=== PATIENT | female | born 1970 | race Caucasian/White ===

== ENCOUNTER 2017-01-28 10:54 | Emergency (ER) | payer OTHER ==
[~2017-01-28] VITALS: Ht 162.6 cm; Wt 72.1 kg
[~2017-01-28 10:54] MED LIST: CIPR500T4; DEPA500T2; MAXALT; PROP60TA; PYRI200T; VICO5TAB
[2017-01-28 10:55] VITALS: BP 110/70
[2017-01-28] MEDS ORDERED: MULTCAP11 PO (11:10)
[2017-01-28] MEDS ORDERED: NS 1,000 ML IV ONE (12:45)
[2017-01-28] MEDS ORDERED: ONDANSETRON 4MG/2ML VIAL (J2405) IV ONE ×2 (12:45→15:30)
[2017-01-28] MEDS ORDERED: KETOROLAC 30 MG/ML VIAL (J1885) IV ONE (12:45)
[2017-01-28 12:46] LABS: BASO % 0.3 % (0.0-1.0); EOS % 0.3 % (0.0-3.0); LARGE UNSTAINED CELL # 0.1 K/mm3 (0.0-0.4); LARGE UNSTAINED CELL % 1.1 % (0.0-4.0); LYMPH # 1.8 K/mm3 (1.5-4.5); LYMPH % 21.7 % (24.0-44.0); MEAN CORPUSCULAR HEMOGLOBIN 24.1 pg (27.0-33.0); MEAN CORPUSCULAR HGB CONC 31.4 g/dl (32.0-36.5); MEAN CORPUSCULAR VOLUME 76.7 fl (80.0-96.0); MONO # 0.4 K/mm3 (0.0-0.8); MONO % 5.5 % (0.0-5.0); NEUTROPHILS # 5.6 K/mm3 (1.8-7.7); NEUTROPHILS % 71.1 % (36.0-66.0); PLATELET COUNT, AUTOMATED 236 k/mm3 (150-450); RED CELL DISTRIBUTION WIDTH 14.4 % (11.5-14.5); WHITE BLOOD COUNT 7.8 K/mm3 (4.0-10.0)
[2017-01-28 12:50] LABS: CONTROL LINE UCG INT CTR LINE PRESENT
[2017-01-28 13:17] LABS: ALBUMIN 4.3 GM/DL (3.2-5.2); ALBUMIN/GLOBULIN RATIO 1.19 (1.00-1.93); ALKALINE PHOSPHATASE 78 U/L (45-117); ALT/SGPT 18 U/L (12-78); ANION GAP 7 MEQ/L (8-16); AST/SGOT 12 U/L (15-37); BILIRUBIN,DIRECT 0.1 MG/DL (0.0-0.2); BILIRUBIN,TOTAL 0.4 MG/DL (0.2-1.0); BLOOD UREA NITROGEN 8 MG/DL (7-18); CALCIUM LEVEL 9.2 MG/DL (8.5-10.1); CARBON DIOXIDE LEVEL 27 MEQ/L (21-32); CHLORIDE LEVEL 107 MEQ/L (98-107); CREATININE FOR GFR 0.83 MG/DL (0.55-1.02); GLOMERULAR FILTRATION RATE > 60.0 (>58); GLUCOSE, FASTING 98 MG/DL (70-105); POTASSIUM SERUM 3.7 MEQ/L (3.5-5.1); SODIUM LEVEL 141 MEQ/L (136-145); TOTAL PROTEIN 7.9 GM/DL (6.4-8.2)
--- NOTE | 2017-01-28 14:04 | REP ---
CT abdomen pelvis without IV or bowel contrast: Comparison is the most recent prior study of 08/14/2009. The visualized lung hill are unremarkable. The hepatic parenchyma, gallbladder, pancreas and spleen are unremarkable. There has been interim bariatric surgery. The patient has also had an interim appendectomy. The adrenals are unremarkable. There is no hydronephrosis. There are no renal calculi. However, there is a tiny 3 mm calculus in the pelvis on the right on image 89, not present previously. I cannot determine with certainty whether this is an ureteral calculus or not. Similarly there is a 5 mm calculus in the pelvis on the left on image 85, not present previously. Unable to determine if this is an ureteral calculus on the current study. There are no bladder calculi. As stated there is no hydronephrosis. Pelvis: There is a trace of ascites in the cul-de-sac. There is no adenopathy. There is a 5.1 cm mass anterior to the uterus on the right, not present previously, possibly a large exophytic fibroid. Impression: There are calcifications in the pelvis bilaterally, not present previously, questionable ureteral calculi. There is no hydronephrosis. I would recommend a CT urogram to identify locations of the ureters in relation to these calcifications. There is a soft tissue mass anterior to the uterine fundus on the right measuring 5.1 cm, not present previously, possibly an exophytic uterine fibroid. There is a trace of ascites in the pelvis. There has been interim bariatric surgery had an interim appendectomy. Signed by Michael Santana MD 01/28/2017 01:56 P
[2017-01-28] MEDS ORDERED: ISOVUE-370 76% 100ML VIAL (Q9967) As Ordered ONE (14:26)
[2017-01-28] MEDS ORDERED: MORPHINE 2 MG/ML 1ML SYRINGE IV ONE (15:30)
--- NOTE | 2017-01-28 16:04 | REP ---
CT ABDOMEN AND PELVIS WITH IV CONTRAST: TECHNIQUE: Axial contrast enhanced images from the lung bases to the pubic symphysis using 100 mL Isovue 370 intravenous contrast material with multiplanar reformations. Visualized lung bases are clear. The liver, spleen, adrenals, pancreas, and kidneys are normal in appearance. There is no hydroureteronephrosis or evidence of ureteral obstruction. The patient has had prior gastric bypass surgery. There is no abdominal aortic aneurysm. There is no adenopathy. There is no free air. There is no bowel wall thickening. There is mild free fluid in the pelvis. In the right anterior pelvis, there is a 5.6 cm round mass which most likely represents a complex ovarian cyst. A second small cystic structure is seen at its superolateral aspect measuring 2.1 cm in diameter. No other pelvic mass is seen. Urinary bladder is unremarkable. IMPRESSION: No hydronephrosis or evidence of ureteral obstruction. Right anterior pelvic mass measures 5.6 cm in maximum diameter, probably representing a complex right ovarian cyst. There is mild free fluid. Recommend pelvic ultrasound to further evaluate. Signed by Michael Melo MD 01/28/2017 05:41 P
--- NOTE | 2017-01-28 16:39 | REP ---
Pelvic ultrasound including transabdominal, endovaginal and Doppler ultrasound assessment: The uterus is anteverted and upper normal size measuring 9.4 x 5.6 x 6.3 cm. The endometrium is thickened measuring 18.9 mm. No myometrial fibroids are identified. There is a 6.2 cm solid mass in the right adnexa. No normal right ovarian tissue is identified. Therefore, this mass could represent an ovarian neoplasm. The left ovary is normal size measuring 2.5 x 1.9 x 1.6 cm. There is vascular flow in the left ovary with the Doppler resistive index of the intraparenchymal arteries measuring 0.48. Impression: There is a 6.2 cm solid mass in the right adnexa. There is no normal right ovarian tissue identified, therefore, this mass could represent a large right ovarian mass replacing the entire right ovary. 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 The endometrium is thickened. No uterine fibroids are identified. The left ovary is unremarkable. Signed by Michael Santana MD 01/28/2017 04:30 P
[2017-01-28] MEDS ORDERED: OXYC1TAB23 PO (17:10)
--- NOTE | 2017-02-02 21:22 | ED PDOC ---
Post-Departure Follow-Up dr morataya and dr kapadia faxed formal report of ct abd/p for fu Genesis Condon MD Feb 02, 2017 21:22
== END 2017-01-28 17:19 | disposition home or self-care (01) ==
LOC: M ED 12:37
DX: R19.09 Other intra-abdominal and pelvic swelling, mass and lump (principal); F33.9 Major depressive disorder, recurrent, unspecified; Z88.8 Allergy status to other drugs, medicaments and biological substances; Z91.040 Latex allergy status
CPT/HCPCS: 74176; 74177; 76830; 76856; 80048; 80076; 81001; 83690; 84703; 85025; 93976; 96374; 96375; 96376; 99283; J1885; J2405; Q9967

== ENCOUNTER → 2017-02-08 | Outpatient (CLI) | payer OTHER ==
[~2017-02-08] MED LIST changes: +MULTCAP11 PO; +OXYC1TAB23 PO
== END ==
LOC: M LAB 18:30
DX: N83.209 Unspecified ovarian cyst, unspecified side (principal)

== ENCOUNTER → 2017-06-14 | Outpatient (REF) | payer OTHER | LOC: M SFHCCLAY 16:08 | PROVIDERS: ATTEND Nurse Practitioner Family | DX: N76.1 Subacute and chronic vaginitis (principal) ==

== ENCOUNTER → 2018-12-20 | Outpatient (REF) | payer OTHER ==
[2018-12-20 17:22] LABS: HEMATOCRIT 33.2 % (36.0-47.0); HEMOGLOBIN 9.6 g/dl (12.0-15.5); MEAN CORPUSCULAR HEMOGLOBIN 20.7 pg (27.0-33.0); MEAN CORPUSCULAR HGB CONC 28.9 g/dl (32.0-36.5); MEAN CORPUSCULAR VOLUME 71.6 fl (80.0-96.0); PLATELET COUNT, AUTOMATED 266 10^3/uL (150-450); RED BLOOD COUNT 4.64 10^6/uL (4.00-5.40); WHITE BLOOD COUNT 3.4 10^3/uL (4.0-10.0)
[2018-12-20 17:27] LABS: APPEARANCE, URINE CLEAR (CLEAR); BACTERIA, URINE AUTO NEGATIVE (NEGATIVE); BILIRUBIN, URINE AUTO NEGATIVE (NEGATIVE); BLOOD, URINE BLOOD NEGATIVE (NEGATIVE); COLOR, URINE STRAW (YELLOW); GLUCOSE, URINE (UA) AUTO NEGATIVE (NEGATIVE); KETONE, URINE AUTO NEGATIVE (NEGATIVE); LEUKOCYTE ESTERASE, URINE AUTO NEGATIVE (NEGATIVE); NITRITE, URINE AUTO NEGATIVE (NEGATIVE); PROTEIN, URINE AUTO NEGATIVE (NEGATIVE); RBC, URINE AUTO 0 /HPF (0-3); SPECIFIC GRAVITY URINE AUTO 1.008 (1.002-1.035); SQUAMOUS EPITHELIAL CELL UR AU 0 /HPF (0-6); UROBILINOGEN, URINE AUTO 0.2 mg/dL (0.0-2.0); WBC, URINE AUTO 0 /HPF (0-3)
[2018-12-20 17:37] LABS: ALT/SGPT 23 U/L (12-78); BILIRUBIN,TOTAL 0.4 MG/DL (0.2-1.0); BLOOD UREA NITROGEN 12 MG/DL (7-18); CALCIUM LEVEL 8.7 MG/DL (8.5-10.1); CARBON DIOXIDE LEVEL 30 MEQ/L (21-32); CHLORIDE LEVEL 108 MEQ/L (98-107); CHOLESTEROL LEVEL 216 MG/DL (<200); CHOLESTEROL RISK RATIO 2.373 (<5); CREATININE FOR GFR 0.77 MG/DL (0.55-1.30); GLOMERULAR FILTRATION RATE > 60.0 (>51); GLUCOSE, FASTING 83 MG/DL (70-100); HDL CHOLESTEROL 91 MG/DL (>40); LDL CHOLESTEROL 108 MG/DL (<100); NON-HDL-C 125 MG/DL; POTASSIUM SERUM 4.2 MEQ/L (3.5-5.1); SODIUM LEVEL 142 MEQ/L (136-145); TOTAL PROTEIN 7.3 GM/DL (6.4-8.2); TRIGLYCERIDES LEVEL 87 MG/DL (<150)
[2018-12-23 00:09] LABS: ANA (HEP2) Negative (.); CYCLIC CITRULLINATED PEPTIDE 7 units (0-19)
== END ==
LOC: M SFHCCLAY 11:57
PROVIDERS: ATTEND Family Medicine
DX: Z00.00 Encounter for general adult medical examination without abnormal findings (principal); N94.10 Unspecified dyspareunia; Z15.09 Genetic susceptibility to other malignant neoplasm; M25.532 Pain in left wrist; M25.531 Pain in right wrist

== ENCOUNTER → 2019-01-24 | Outpatient (CLI) | payer OTHER ==
[~2019-01-24] MED LIST changes: +BIOT1CAP2 PO; +FISH1000 PO; +IRON27TA2 PO; +PROHANCE 279.3MG/ML 15ML VIAL (A9576) As Ordered ONE; +VITA100067 PO; +VITA500T3 PO
--- NOTE | 2019-01-24 12:02 | REP ---
MRI ABDOMEN WITH AND WITHOUT CONTRAST: TECHNIQUE: Multiple sequences obtained in the coronal and axial planes prior to and following the intravenous administration of 13 mL ProHance. Comparison made with prior CT 01/28/2017 The liver demonstrates no mass. Gallbladder is grossly unremarkable. There is no biliary dilatation. The spleen, adrenals, pancreas, and kidneys are normal in appearance with no evidence of a mass. No adenopathy is seen in the abdomen. No free fluid is seen. IMPRESSION: No evidence of mass or adenopathy. Electronically Signed by Michael Melo MD 01/24/2019 04:34 P
== END ==
LOC: M RAD 08:50
PROVIDERS: ATTEND Internal Medicine Gastroenterology
DX: Z15.09 Genetic susceptibility to other malignant neoplasm (principal); Z80.0 Family history of malignant neoplasm of digestive organs
CPT/HCPCS: 74183; A9576

== ENCOUNTER 2019-01-29 11:16 | Day surgery (SDC) | payer OTHER ==
[~2019-01-29] VITALS: Ht 162.6 cm; Wt 67.1 kg
[~2019-01-29 11:16] MED LIST changes: +NS 1,000 ML IV ONE; -PROHANCE 279.3MG/ML 15ML VIAL (A9576) As Ordered ONE
[2019-01-29] MEDS ORDERED: PROPOFOL 500 MG/50 ML VIAL As Ordered ONE (13:16)
[2019-01-29] MEDS ORDERED: fentaNYL 100 MCG/2 ML INJECTION (J3010) As Ordered ONE (13:55)
--- NOTE | 2019-01-29 14:08 | ROOR ---
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 Procedure: Pre-Anesthesia Assessment: - The heart rate, respiratory rate, oxygen saturations, blood pressure, adequacy of pulmonary ventilation, and response to care were monitored throughout the procedure. The Endoscope was introduced through the mouth, and advanced to the jejunum. The upper GI endoscopy was accomplished without difficulty. The patient tolerated the procedure well. Findings: The examined esophagus was normal. Evidence of a Latonia-en-Y gastrojejunostomy was found. The gastrojejunal anastomosis was characterized by healthy appearing mucosa. The exam of the stomach was otherwise normal. Several biopsies were obtained with cold forceps for histology randomly in the entire examined stomach. The examined jejunum was normal. Impression: - Normal esophagus. - Latonia-en-Y gastrojejunostomy with gastrojejunal anastomosis characterized by healthy appearing mucosa. - Normal examined jejunum. - Several biopsies were obtained in the entire examined stomach remnant. Recommendation: - Await pathology results. - Telephone endoscopist for pathology results in 2 weeks. Jae Gr MD Jae GR MD 01/29/2019 2:07:37 PM Electronically signed by Jae RG MD Number of Addenda: 0 Note Initiated On: 01/29/2019 1:51 PM Estimated Blood Loss: Estimated blood loss: none.
--- NOTE | 2019-01-29 14:31 | ROOR ---
Patient Name: Xochitl Ardon Procedure Date: 01/29/2019 1:52 PM Date of : 1970 Age: 48 Room: [facility] Gender: Female Note Status: Finalized Procedure: Colonoscopy Indications: Colon cancer screening in patient at increased risk: Family history of hereditary nonpolyposis colorectal cancer Providers: Jae GR MD Referring MD: Raymon Field MD Requesting Provider: Medicines: Monitored Anesthesia Care Complications: No immediate complications. Procedure: Pre-Anesthesia Assessment: - The heart rate, respiratory rate, oxygen saturations, blood pressure, adequacy of pulmonary ventilation, and response to care were monitored throughout the procedure. The Colonoscope was introduced through the anus and advanced to the terminal ileum, with identification of the appendiceal orifice and IC valve. The colonoscopy was performed without difficulty. The patient tolerated the procedure well. The quality of the bowel preparation was good. Findings: The perianal and digital rectal examinations were normal. A 4 mm polyp was found in the splenic flexure. The polyp was sessile. The polyp was removed with a cold snare. Resection and retrieval were complete. The exam was otherwise without abnormality on direct and retroflexion views. Impression: - One 4 mm polyp at the splenic flexure, removed with a cold snare. Resected and retrieved. - The examination was otherwise normal on direct and retroflexion views. Recommendation: - Repeat colonoscopy in 1 year for screening purposes. Jae Gr MD Jae GR MD 01/29/2019 2:30:58 PM Electronically signed by Jae GR MD Number of Addenda: 0 Note Initiated On: 01/29/2019 1:52 PM Estimated Blood Loss: Estimated blood loss: none.
[2019-01-29] MEDS ORDERED: LIDOCAINE 2% INJ 100 MG/5 ML SDV (FOR ANES.) As Ordered ONE (14:40)
[2019-01-29 15:05] VITALS: BP 114/62
== END 2019-01-29 15:10 | disposition home or self-care (01) ==
LOC: M OPP 11:16
PROVIDERS: ATTEND Internal Medicine Gastroenterology
DX: D12.3 Benign neoplasm of transverse colon (principal); R10.13 Epigastric pain; Z12.11 Encounter for screening for malignant neoplasm of colon; Z80.0 Family history of malignant neoplasm of digestive organs; Z15.09 Genetic susceptibility to other malignant neoplasm; Z98.84 Bariatric surgery status
CPT/HCPCS: 43239; 45385; 88305; J3010

== ENCOUNTER → 2019-03-07 | Outpatient (CLI) | payer OTHER ==
[~2019-03-07] MED LIST changes: -NS 1,000 ML IV ONE
--- NOTE | 2019-03-07 10:35 | REPMRS ---
Patient History The patient states she has not had a clinical breast exam in over a year. Family history of ovarian cancer at age 25 in mother, breast cancer at age 38 in mother, unknown cancer at age 50 in mother, breast cancer at age 60 in maternal aunt, breast cancer at age 68 in maternal aunt, colorectal cancer at age 70 in father, breast cancer at age 35 in maternal grandmother, unknown cancer at age 50 in maternal grandfather, ovarian cancer at age 18 in sister, breast cancer in maternal aunt. Took hormonal contraceptives for 10 years. Patient states she had a double lumpectomy in right breast with benign results. Digital Mammo Screening Bilat: March 07, 2019 - Exam #: [id number] Bilateral CC and MLO view(s) were taken. Technologist: Candie Kennedyologist Prior study comparison: December 19, 2013, bilateral bilat screen digital mammo, performed at [facility] ([facility]). June 11, 2009, bilateral screening mammogram, performed at [facility] ([facility]). FINDINGS: The breast tissue is heterogeneously dense. This may lower the sensitivity of mammography. There is a moderate amount of heterogeneously dense fibroglandular tissue which is fairly symmetric. There is no interval development of dominant mass, architectural distortion, or clustered microcalcification typical of malignancy. There has been no change in the appearance of the mammogram from the prior studies. 3-D tomosynthesis shows no additional findings. Assessment: BI-RADS/ACR category 1 mammogram. Negative Mammogram. Recommendation Breast MRI of both breasts in 6 months. Routine screening mammogram of both breasts in 1 year (for women over age 40). This patient's Lifetime Breast Cancer RIsk is estimated at 26.8 %. Annual screening Breast MRI scanniing is recommended for patient's whose lifetime risk assessment is over 20%. This mammogram was interpreted with the aid of an FDA-approved computer-aided dectection system. Electronically Signed By: Milo Molina MD 03/07/19 [id number]
== END ==
LOC: M RAD 07:22
PROVIDERS: ATTEND Family Medicine
DX: Z12.31 Encounter for screening mammogram for malignant neoplasm of breast (principal); Z80.3 Family history of malignant neoplasm of breast; Z80.41 Family history of malignant neoplasm of ovary; Z80.9 Family history of malignant neoplasm, unspecified; Z80.0 Family history of malignant neoplasm of digestive organs; Z92.0 Personal history of contraception

== ENCOUNTER → 2019-03-30 | Outpatient (CLI) | payer OTHER ==
[2019-03-30 11:04] LABS: BASO % 1.1 % (0.0-1.0); EOS # 0.1 10^3/uL (0.0-0.50); EOS % 3.4 % (0.0-3.0); HEMATOCRIT 30.9 % (36.0-47.0); LYMPH # 1.7 10^3/uL (1.5-4.5); LYMPH % 46.9 % (24.0-44.0); MEAN CORPUSCULAR HEMOGLOBIN 20.6 pg (27.0-33.0); MEAN CORPUSCULAR HGB CONC 29.1 g/dl (32.0-36.5); MEAN CORPUSCULAR VOLUME 70.9 fl (80.0-96.0); MONO # 0.3 10^3/uL (0.0-0.8); MONO % 9.3 % (0.0-5.0); NEUTROPHILS # 1.4 10^3/uL (1.8-7.7); PLATELET COUNT, AUTOMATED 254 10^3/uL (150-450); RED BLOOD COUNT 4.36 10^6/uL (4.00-5.40); WHITE BLOOD COUNT 3.6 10^3/uL (4.0-10.0)
[2019-03-30 11:27] LABS: ALBUMIN 3.6 GM/DL (3.2-5.2); ALT/SGPT 20 U/L (12-78); BILIRUBIN,TOTAL 0.2 MG/DL (0.2-1.0); BLOOD UREA NITROGEN 17 MG/DL (7-18); CALCIUM LEVEL 8.6 MG/DL (8.5-10.1); CARBON DIOXIDE LEVEL 30 MEQ/L (21-32); CHLORIDE LEVEL 110 MEQ/L (98-107); CREATININE FOR GFR 0.77 MG/DL (0.55-1.30); FERRITIN < 3 NG/ML (8-252); GLOMERULAR FILTRATION RATE > 60.0 (>51); GLUCOSE, FASTING 92 MG/DL (70-100); IRON (FE) 20 UG/DL (50-170); MAGNESIUM LEVEL 2.3 MG/DL (1.8-2.4); PERCENT SATURATION 4.4 % (13.2-45.0); POTASSIUM SERUM 4.5 MEQ/L (3.5-5.1); RHEUMATOID FACTOR QUANT < 10.0 IU/ML (<15.0); SODIUM LEVEL 144 MEQ/L (136-145); TOTAL IRON BINDING CAPACITY 450 UG/DL (250-450); TOTAL PROTEIN 6.9 GM/DL (6.4-8.2)
[2019-03-30 11:34] LABS: FOLATE 8.9 NG/ML (>5.4); TOTAL 25(OH) VITAMIN D 22.8 NG/ML (30.0-100.0); VITAMIN B12 LEVEL 260 PG/ML (247-911)
[2019-03-30 11:41] LABS: ERYTHROCYTE SEDIMENTATION RATE 17 mm/hr (0-30)
[2019-04-03 00:06] LABS: ANA (HEP2) Positive (.); Lyme Disease IgG/IgM Antibodie <0.91 ISR (0.00-0.90); Lyme Disease IgM Ab Quantitati <0.80 index (0.00-0.79)
== END ==
LOC: M LAB 08:55
PROVIDERS: ATTEND Nurse Practitioner Family
DX: Z98.84 Bariatric surgery status (principal); M25.531 Pain in right wrist

== ENCOUNTER → 2019-05-08 | Outpatient (REF) | payer OTHER ==
[~2019-05-08] MED LIST changes: +CIPR-249 PO; +CYAN500T8 PO; +PYRI1TAB5 PO; -VITA500T3 PO
[2019-05-08 13:03] LABS: HEMATOCRIT 32.5 % (36.0-47.0); HEMOGLOBIN 9.4 g/dl (12.0-15.5); MEAN CORPUSCULAR HEMOGLOBIN 21.1 pg (27.0-33.0); MEAN CORPUSCULAR HGB CONC 28.9 g/dl (32.0-36.5); PLATELET COUNT, AUTOMATED 248 10^3/uL (150-450); RED BLOOD COUNT 4.45 10^6/uL (4.00-5.40); WHITE BLOOD COUNT 3.8 10^3/uL (4.0-10.0)
[2019-05-08 13:09] LABS: PERCENT SATURATION 3.3 % (13.2-45.0)
[2019-05-08 13:15] LABS: PTH INTACT 48.1 PG/ML (18.5-88.0)
== END ==
LOC: M SFHCCLAY 07:50
PROVIDERS: ATTEND Family Medicine
DX: Z86.19 Personal history of other infectious and parasitic diseases (principal); D50.9 Iron deficiency anemia, unspecified; Z98.84 Bariatric surgery status

== ENCOUNTER 2019-05-26 02:27 | Emergency (ER) | payer OTHER ==
[~2019-05-26] VITALS: Ht 162.6 cm; Wt 68.8 kg
[~2019-05-26 02:27] MED LIST changes: -CIPR-249 PO; -PYRI1TAB5 PO
[2019-05-26 04:06] LABS: BASO % 0.6 % (0.0-1.0); EOS # 0.1 10^3/uL (0.0-0.50); EOS % 1.9 % (0.0-3.0); HEMATOCRIT 28.8 % (36.0-47.0); HEMOGLOBIN 8.5 g/dl (12.0-15.5); LYMPH # 1.7 10^3/uL (1.5-4.5); LYMPH % 27.1 % (24.0-44.0); MEAN CORPUSCULAR HEMOGLOBIN 20.8 pg (27.0-33.0); MEAN CORPUSCULAR HGB CONC 29.5 g/dl (32.0-36.5); MEAN CORPUSCULAR VOLUME 70.4 fl (80.0-96.0); MONO # 0.5 10^3/uL (0.0-0.8); MONO % 8.7 % (0.0-5.0); NEUTROPHILS # 3.8 10^3/uL (1.8-7.7); NEUTROPHILS % 61.5 % (36.0-66.0); PLATELET COUNT, AUTOMATED 233 10^3/uL (150-450); RED BLOOD COUNT 4.09 10^6/uL (4.00-5.40); WHITE BLOOD COUNT 6.2 10^3/uL (4.0-10.0)
[2019-05-26 04:47] LABS: ALBUMIN 3.7 GM/DL (3.2-5.2); ALT/SGPT 19 U/L (12-78); AMYLASE 57 U/L (25-115); BILIRUBIN,DIRECT < 0.1 MG/DL (0.0-0.2); BILIRUBIN,TOTAL 0.2 MG/DL (0.2-1.0); LIPASE 133 U/L (73-393); TOTAL PROTEIN 6.9 GM/DL (6.4-8.2)
[2019-05-26 05:00] VITALS: BP 124/72
[2019-05-26] MEDS ORDERED: CIPR-249 PO (05:13)
[2019-05-26] MEDS ORDERED: PYRI1TAB5 PO (05:13)
[2019-05-26] MEDS ORDERED: PHENAZOPYRIDINE 100 MG TAB PO ONE (05:15)
[2019-05-26] MEDS ORDERED: CIPROFLOXACIN 500 MG TAB PO ONE (05:15)
== END 2019-05-26 05:27 | disposition home or self-care (01) ==
LOC: M ED 02:27
DX: N10 Acute pyelonephritis (principal); Z15.09 Genetic susceptibility to other malignant neoplasm; Z79.899 Other long term (current) drug therapy; Z88.8 Allergy status to other drugs, medicaments and biological substances; Z91.040 Latex allergy status

== ENCOUNTER → 2019-05-31 | Outpatient (REF) | payer OTHER ==
[~2019-05-31] MED LIST changes: +CIPR-249 PO; +PYRI1TAB5 PO
== END ==
LOC: M SFHCCLAY 16:06
PROVIDERS: ATTEND Family Medicine
DX: Z98.84 Bariatric surgery status (principal); D50.9 Iron deficiency anemia, unspecified

== ENCOUNTER 2019-06-15 08:17 | Outpatient (CLI) | payer OTHER ==
[2019-06-15] VITALS (8 sets, daily range): BP systolic 101–137; BP diastolic 49–66
[~2019-06-15] VITALS: Ht 162.6 cm; Wt 67.7 kg
[2019-06-15] MEDS ORDERED: IRON SUCROSE 25 MG in NS 50 ML IV ONE (09:30)
[2019-06-15] MEDS ORDERED: IRON SUCROSE 475 MG in NS 250 ML IV ONE (10:30)
== END 2019-06-15 15:05 | disposition home or self-care (01) ==
LOC: M INFU 08:17
PROVIDERS: ATTEND Family Medicine
DX: D50.9 Iron deficiency anemia, unspecified (principal); Z88.8 Allergy status to other drugs, medicaments and biological substances; Z91.040 Latex allergy status
CPT/HCPCS: 96365; 96366; J1756

== ENCOUNTER → 2019-08-02 | Outpatient (CLI) | payer OTHER ==
[2019-08-02 17:13] LABS: HEMOGLOBIN 11.1 g/dl (12.0-15.5); MEAN CORPUSCULAR HEMOGLOBIN 23.2 pg (27.0-33.0); MEAN CORPUSCULAR VOLUME 77.2 fl (80.0-96.0); PLATELET COUNT, AUTOMATED 234 10^3/uL (150-450); RED BLOOD COUNT 4.79 10^6/uL (4.00-5.40); WHITE BLOOD COUNT 5.2 10^3/uL (4.0-10.0)
[2019-08-02 17:16] LABS: CREATININE,RANDOM URINE 49.8 MG/DL; TOTAL PROTEIN,RANDOM URINE 7.5 MG/DL (0.0-12.0)
[2019-08-02 17:18] LABS: PERCENT SATURATION 5.7 % (13.2-45.0)
[2019-08-08 14:07] LABS: ANTI DS-DNA AB <1:10 titer (.); RNP ANTIBODY 0.2 AI (0.0-0.9); SMITHS ANTIBODY < 0.2 AI (0.0-0.9)
== END ==
LOC: M LAB 15:12
PROVIDERS: ATTEND Family Medicine
DX: D50.9 Iron deficiency anemia, unspecified (principal); R76.8 Other specified abnormal immunological findings in serum; Z98.84 Bariatric surgery status

== ENCOUNTER → 2019-08-02 | Outpatient (CLI) | payer OTHER ==
--- NOTE | 2019-08-02 16:57 | REP ---
Bilateral hand series: Eight views. History: Pain. Findings: Four views of each hand are obtained. Overall mineralization pattern is normal. On the left, there are mild osteoarthritic spur changes at the DIP joints of the index, long, ring, and small finger. Mild IP joint spurring is seen at the thumb. No erosive changes seen. On the right, there are similar changes with IP joint thumb spurring and mild osteoarthritic spurring at the DIP joints of the index, long ring and small fingers. There is a small fragmented spur with overlying swelling at the DIP joint of the index finger. Impression: Mild IP joint osteoarthritic changes. Electronically Signed by Lane Molina MD 08/03/2019 08:34 A
== END ==
LOC: M LAB 15:06
PROVIDERS: ATTEND Internal Medicine Rheumatology
DX: M19.041 Primary osteoarthritis, right hand (principal); M19.042 Primary osteoarthritis, left hand; R76.8 Other specified abnormal immunological findings in serum; M79.643 Pain in unspecified hand

== ENCOUNTER → 2019-08-30 | Outpatient (REF) | payer OTHER ==
[2019-08-30 11:54] LABS: HEMATOCRIT 38.2 % (36.0-47.0); HEMOGLOBIN 11.4 g/dl (12.0-15.5); MEAN CORPUSCULAR HEMOGLOBIN 23.8 pg (27.0-33.0); MEAN CORPUSCULAR HGB CONC 29.8 g/dl (32.0-36.5); MEAN CORPUSCULAR VOLUME 79.6 fl (80.0-96.0); PLATELET COUNT, AUTOMATED 240 10^3/uL (150-450); WHITE BLOOD COUNT 4.4 10^3/uL (4.0-10.0)
[2019-08-30 12:39] LABS: PERCENT SATURATION 12.9 % (13.2-45.0); THYROID STIMULATING HORMONE 2.04 uIU/ML (0.358-3.740)
== END ==
LOC: M SFHCCLAY 08:54
PROVIDERS: ATTEND Family Medicine
DX: D50.9 Iron deficiency anemia, unspecified (principal); F32.9 Major depressive disorder, single episode, unspecified

== ENCOUNTER 2019-11-24 14:56 | Emergency (ER) | payer OTHER ==
[~2019-11-24] VITALS: Ht 162.6 cm; Wt 67.5 kg
[2019-11-24] MEDS ORDERED: FLUO20CA19 PO (15:08)
[2019-11-24] MEDS ORDERED: ACET-908 PO (15:08)
[2019-11-24 15:59] LABS: INFLUENZA A AMPLIFICATION POSITIVE (NEGATIVE); INFLUENZA B AMPLIFICATION NEGATIVE (NEGATIVE)
[2019-11-24] MEDS ORDERED: OSEL75CA PO (16:21)
[2019-11-24] MEDS ORDERED: IBUPROFEN 600 MG TAB PO ONE (16:30)
[2019-11-24 16:35] VITALS: BP 121/73
== END 2019-11-24 16:42 | disposition home or self-care (01) ==
LOC: M ED 14:56
DX: J09.X2 Influenza due to identified novel influenza A virus with other respiratory manifestations (principal); F32.9 Major depressive disorder, single episode, unspecified; J30.2 Other seasonal allergic rhinitis; Z98.84 Bariatric surgery status; Z90.89 Acquired absence of other organs; Z98.51 Tubal ligation status; Z90.710 Acquired absence of both cervix and uterus; Z88.1 Allergy status to other antibiotic agents; Z88.8 Allergy status to other drugs, medicaments and biological substances; Z91.040 Latex allergy status

== ENCOUNTER → 2019-12-30 | Outpatient (CLI) | payer OTHER ==
[~2019-12-30] MED LIST changes: +ACET-908 PO; +FLUO20CA22 PO; +OSEL75CA PO
[2019-12-30 17:56] LABS: HEMATOCRIT 36.5 % (36.0-47.0); HEMOGLOBIN 11.3 g/dl (12.0-15.5); MEAN CORPUSCULAR HEMOGLOBIN 25.5 pg (27.0-33.0); MEAN CORPUSCULAR VOLUME 82.2 fl (80.0-96.0); PLATELET COUNT, AUTOMATED 215 10^3/uL (150-450); RED BLOOD COUNT 4.44 10^6/uL (4.00-5.40); WHITE BLOOD COUNT 3.7 10^3/uL (4.0-10.0)
[2019-12-30 18:01] LABS: PERCENT SATURATION 8.1 % (13.2-45.0)
== END ==
LOC: M WUC 13:06
PROVIDERS: ATTEND Family Medicine
DX: D50.9 Iron deficiency anemia, unspecified (principal)

== ENCOUNTER → 2020-03-27 | Outpatient (REF) | payer OTHER | LOC: M SFHCCLAY 15:59 | PROVIDERS: ATTEND Family Medicine | DX: D50.9 Iron deficiency anemia, unspecified (principal) ==

== ENCOUNTER → 2020-05-14 | Outpatient (CLI) | payer SELFPAY ==
[~2020-05-14] MED LIST changes: +D31000TA2 PO; +MULTTAB26 PO
== END ==
LOC: M LABSMTC 13:07
PROVIDERS: ATTEND Pediatrics
DX: Z20.828 Contact with and (suspected) exposure to other viral communicable diseases (principal); Z11.59 Encounter for screening for other viral diseases

== ENCOUNTER → 2020-06-15 | Outpatient (CLI) | payer OTHER, SELFPAY | LOC: M LABSMTC 10:33 | PROVIDERS: ATTEND Anesthesiology | DX: Z01.812 Encounter for preprocedural laboratory examination (principal); Z11.59 Encounter for screening for other viral diseases | CPT/HCPCS: C9803; U0003 ==

== ENCOUNTER 2020-06-20 10:40 | Day surgery (SDC) | payer OTHER ==
[~2020-06-20] VITALS: Ht 162.6 cm; Wt 69.3 kg
[~2020-06-20 10:40] MED LIST changes: +NS 1,000 ML IV ONE
[2020-06-20] MEDS ORDERED: propofoL 200 MG/20 ML VIAL As Ordered ONE ×2 (12:22→12:39)
[2020-06-20] MEDS ORDERED: LIDOCAINE 2% 100MG/5ML SDV (FOR ANES.) As Ordered ONE (12:22)
[2020-06-20] MEDS ORDERED: fentaNYL 100 MCG/2 ML INJECTION (J3010) As Ordered ONE (12:22)
[2020-06-20] MEDS ORDERED: ONDANSETRON 4MG/2ML VIAL As Ordered ONE (13:13)
[2020-06-20 13:20] VITALS: BP 122/55
--- NOTE | 2020-08-14 16:25 | ROOR ---
THIS EXAM WAS SENT IN ERROR
--- NOTE | 2020-08-14 16:25 | ROOR ---
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 Procedure: Pre-Anesthesia Assessment: - The heart rate, respiratory rate, oxygen saturations, blood pressure, adequacy of pulmonary ventilation, and response to care were monitored throughout the procedure. The Endoscope was introduced through the mouth, and advanced to the jejunum. The upper GI endoscopy was accomplished without difficulty. The patient tolerated the procedure well. Findings: The examined esophagus was normal. Evidence of a Latonia-en-Y gastrojejunostomy was found. The gastrojejunal anastomosis was characterized by healthy appearing mucosa. The exam of the stomach was otherwise normal. Several biopsies were obtained in the entire examined stomach with cold forceps for histology. The examined jejunum was normal. Impression: - Normal esophagus. - Latonia-en-Y gastrojejunostomy with gastrojejunal anastomosis characterized by healthy appearing mucosa. - Normal examined jejunum. - Several biopsies were obtained in the remnant of thestomach. Recommendation: - Await pathology results. - Repeat upper endoscopy in 1-2 years for surveillance. Jae Gr MD Jae GR MD 06/20/2020 12:37:54 PM Electronically signed by Jae GR MD Number of Addenda: 0 Note Initiated On: 06/20/2020 9:51 AM Estimated Blood Loss: Estimated blood loss: none.
--- NOTE | 2020-08-14 16:25 | ROOR ---
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 Procedure: Pre-Anesthesia Assessment: - The heart rate, respiratory rate, oxygen saturations, blood pressure, adequacy of pulmonary ventilation, and response to care were monitored throughout the procedure. The Colonoscope was introduced through the anus and advanced to the terminal ileum, with identification of the appendiceal orifice and IC valve. The colonoscopy was performed without difficulty. The patient tolerated the procedure well. The quality of the bowel preparation was good. Findings: The perianal and digital rectal examinations were normal. Two sessile polyps were found in the recto-sigmoid colon. The polyps were diminutive in size. These polyps were removed with a cold snare. Resection and retrieval were complete. The exam was otherwise without abnormality on direct and retroflexion views. Impression: - Two diminutive polyps at the recto-sigmoid colon, removed with a cold snare. Resected and retrieved. - The examination was otherwise normal on direct and retroflexion views. Recommendation: - Repeat colonoscopy in 1 year for surveillance. Jae SHULTZ MD 06/20/2020 12:58:43 PM Number of Addenda: 0 Note Initiated On: 06/20/2020 9:51 AM Estimated Blood Loss: Estimated blood loss: none.
--- NOTE | 2020-08-14 16:25 | ROOR ---
Patient Name: Xochitl Ardon Procedure Date: 06/20/2020 9:51 AM Date of : 1970 Age: 49 Room: [facility] Gender: Female Note Status: Semiconductor Processing Technician Override Procedure: Colonoscopy Indications: Personal history of hereditary nonpolyposis colorectal cancer gene Providers: Jae SHULTZ MD Referring MD: Raymon Field MD Requesting Provider: Medicines: Monitored Anesthesia Care Complications: No immediate complications. Procedure: Pre-Anesthesia Assessment: - The heart rate, respiratory rate, oxygen saturations, blood pressure, adequacy of pulmonary ventilation, and response to care were monitored throughout the procedure. The Colonoscope was introduced through the anus and advanced to the terminal ileum, with identification of the appendiceal orifice and IC valve. The colonoscopy was performed without difficulty. The patient tolerated the procedure well. The quality of the bowel preparation was good. Findings: The perianal and digital rectal examinations were normal. Two sessile polyps were found in the recto-sigmoid colon. The polyps were diminutive in size. These polyps were removed with a cold snare. Resection and retrieval were complete. The exam was otherwise without abnormality on direct and retroflexion views. Impression: - Two diminutive polyps at the recto-sigmoid colon, removed with a cold snare. Resected and retrieved. - The examination was otherwise normal on direct and retroflexion views. Recommendation: - Repeat colonoscopy in 1 year for surveillance. Jae SHULTZ MD 06/20/2020 12:58:43 PM Number of Addenda: 0 Note Initiated On: 06/20/2020 9:51 AM Estimated Blood Loss: Estimated blood loss: none.
--- NOTE | 2020-08-14 16:25 | ROOR ---
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 Procedure: Pre-Anesthesia Assessment: - The heart rate, respiratory rate, oxygen saturations, blood pressure, adequacy of pulmonary ventilation, and response to care were monitored throughout the procedure. The Endoscope was introduced through the mouth, and advanced to the jejunum. The upper GI endoscopy was accomplished without difficulty. The patient tolerated the procedure well. Findings: The examined esophagus was normal. Evidence of a Latonia-en-Y gastrojejunostomy was found. The gastrojejunal anastomosis was characterized by healthy appearing mucosa. The exam of the stomach was otherwise normal. Several biopsies were obtained in the entire examined stomach with cold forceps for histology. The examined jejunum was normal. Impression: - Normal esophagus. - Latonia-en-Y gastrojejunostomy with gastrojejunal anastomosis characterized by healthy appearing mucosa. - Normal examined jejunum. - Several biopsies were obtained in the remnant of thestomach. Recommendation: - Await pathology results. - Repeat upper endoscopy in 1-2 years for surveillance. Jea Gr MD Jae GR MD 06/20/2020 12:37:54 PM Electronically signed by Jae GR MD Number of Addenda: 0 Note Initiated On: 06/20/2020 9:51 AM Estimated Blood Loss: Estimated blood loss: none.
== END 2020-06-20 14:05 | disposition home or self-care (01) ==
LOC: M OPP 10:40
PROVIDERS: ATTEND Internal Medicine Gastroenterology
DX: Z12.11 Encounter for screening for malignant neoplasm of colon (principal); Z80.0 Family history of malignant neoplasm of digestive organs; D12.5 Benign neoplasm of sigmoid colon; Z15.09 Genetic susceptibility to other malignant neoplasm; Z98.0 Intestinal bypass and anastomosis status; Z98.84 Bariatric surgery status; Z91.040 Latex allergy status; Z88.8 Allergy status to other drugs, medicaments and biological substances
CPT/HCPCS: 43239; 45385; 88305; J3010

== ENCOUNTER → 2020-07-07 | Outpatient (CLI) | payer OTHER, SELFPAY ==
[~2020-07-07] MED LIST changes: -NS 1,000 ML IV ONE; +PROHANCE 279.3MG/ML 15ML VIAL As Ordered ONE
--- NOTE | 2020-07-07 18:58 | REPVR ---
PROCEDURE INFORMATION: Exam: MR Abdomen Without and With Contrast Exam date and time: 07/07/2020 5:01 PM Age: 49 years old Clinical indication: Screening exam; Other: Granda syndrome; Patient HX: Family HX pancreatic CA; Additional info: Granda syndrome, genetic susceptability TECHNIQUE: Imaging protocol: MR of the abdomen without and with intravenous contrast. Contrast material: PROHANCE; Contrast volume: 13 ml; Contrast route: INTRAVENOUS (IV); COMPARISON: MRI ABD W/O FOL WITH 01/24/2019 9:16 AM FINDINGS: Liver: The liver is normal. Gallbladder and bile ducts: The gallbladder is normal.No calculi. Normal bile ducts. Pancreas: The pancreas is normal. Spleen: The spleen is normal. Adrenals: The adrenals are normal. Kidneys and ureters: The kidneys are normal.No hydronephrosis. Stomach and bowel: Visualized stomach and intestines are unremarkable. Intraperitoneal space: No free fluid. Arteries: No abdominal aortic aneurysm. Bones/joints: Unremarkable. Soft tissues: Unremarkable. IMPRESSION: Normal MRI of the abdomen. No evidence of neoplastic pathology. No change from prior scan. Electronically signed by: Shade Chaves On 07/07/2020 18:58:23 PM
== END ==
LOC: M RAD 15:56
PROVIDERS: ATTEND Internal Medicine Gastroenterology
DX: Z15.09 Genetic susceptibility to other malignant neoplasm (principal); Z80.0 Family history of malignant neoplasm of digestive organs
CPT/HCPCS: 74183; A9576